=== PATIENT | male | born 1970 | race Caucasian/White ===

== ENCOUNTER 2021-05-11 10:33 | Emergency (ER) | payer OTHER ==
[2021-05-11 11:37] LABS: #Basophils 0.1 thou/uL (0.0-0.2); #Eosinphils 0.1 thou/uL (0.0-0.7); #Lymphocytes 1.7 thou/uL (1.20-3.40); #Monocytes 0.7 thou/uL (0.11-0.59); #Neutrophils 4.3 thou/uL (1.40-6.50); %Eosinophils 1.7 % (0.0-10.0); %Lymphocytes 25.2 % (21.0-51.0); %Monocytes 9.6 % (0.0-10.0); %Neutrophils 62.6 % (42.0-75.0); Hemoglobin 15.2 g/dL (14.0-18.0); Mean Corpuscular HGB CONC 32.5 g/dL (32.0-36.0); Mean Corpuscular Hemoglobin 29.5 pg (27.0-31.0); Mean Corpuscular Volume 90.6 fL (78.0-98.0); Platelet Count 217 thou/uL (130-400); RBC Distribution Width 12.7 % (11.5-14.5); Red Blood Cell (RBC) Count 5.16 mill/uL (4.70-6.10); White Blood Cell (WBC) Count 6.8 thou/uL (4.8-10.8)
[2021-05-11 11:58] LABS: ALT (SGPT) 38 U/L (8-55); AST (SGOT) 25 U/L (5-34); Albumin 4.1 g/dL (3.5-5.0); Alkaline Phosphatase 72 U/L (40-110); Anion Gap 14 mmol/L (10-20); BUN (Urea Nitrogen) 19 mg/dL (8.9-20.6); Bilirubin, Total 0.7 mg/dL (0.2-1.2); Calc. Creatinine Clearance 0 mL/min (70-130); Calcium 9.9 mg/dL (7.8-10.44); Carbon Dioxide 24 mmol/L (22-29); Chloride 102 mmol/L (98-107); Globulin 3.6 g/dL (2.4-3.5); Glucose 121 mg/dL (70-105); Potassium 3.6 mmol/L (3.5-5.1); Protein, Total 7.7 g/dL (6.0-8.3); Sodium 136 mmol/L (136-145)
[2021-05-11] MEDS ORDERED: Bacitracin 1 PK ONE (11:59)
== END 2021-05-11 12:43 | disposition home or self-care (01) ==
LOC: ERS 10:33
DX: H50.9 Unspecified strabismus (principal); M62.830 Muscle spasm of back; I10 Essential (primary) hypertension; E66.01 Morbid (severe) obesity due to excess calories; F17.290 Nicotine dependence, other tobacco product, uncomplicated; Z79.899 Other long term (current) drug therapy
CPT/HCPCS: 36415; 70450; 80053; 85025; 93005

== ENCOUNTER 2023-12-22 10:52 | Inpatient (IN) | payer SELFPAY ==
[2023-12-22] MEDS ORDERED: dilTIAZem 25 MG/5 ML VIAL ONE (11:06)
[2023-12-22] MEDS ORDERED: Lorazepam 2 MG/ML VIAL ONE (11:06)
[2023-12-22 11:49] LABS: #Basophils 0.04 10x3/uL (0.0-0.2); %Basophils 0.5 % (0.0-1.0); %Eosinophils 1.8 % (0.0-10.0); %Lymphocytes 21.3 % (21.0-51.0); %Monocytes 9.3 % (0.0-10.0); %Neutrophils 66.8 % (42.0-75.0); Hematocrit 40.2 % (42.0-52.0); Hemoglobin 13.4 g/dL (14.0-18.0); Mean Corpuscular HGB CONC 33.3 g/dL (32.0-36.0); Mean Corpuscular Hemoglobin 30.5 pg (27.0-31.0); Mean Corpuscular Volume 91.6 fL (78.0-98.0); Mean Platelet Volume 11.5 fL (7.4-10.4); Platelet Count 186 10x3/uL (130-400); RBC Distribution Width 13.5 % (11.5-14.5); Red Blood Cell (RBC) Count 4.39 mill/uL (4.70-6.10)
[2023-12-22 12:12] LABS: ALT (SGPT) 28 U/L (8-55); AST (SGOT) 22 U/L (5-34); Albumin 3.3 g/dL (3.5-5.0); Alkaline Phosphatase 65 U/L (40-110); Anion Gap 11 mmol/L (10-20); BUN (Urea Nitrogen) 17 mg/dL (8.4-25.7); Bilirubin, Total 0.5 mg/dL (0.2-1.2); CK (CPK) 398 U/L (30-200); Calc. Creatinine Clearance 0 mL/min (70-130); Calcium 9.3 mg/dL (7.8-10.44); Carbon Dioxide 26 mmol/L (22-29); Chloride 105 mmol/L (98-107); Estimated GFR 106; Globulin 3.7 g/dL (2.4-3.5); Glucose 93 mg/dL (70-105); Potassium 3.8 mmol/L (3.5-5.1); Sodium 138 mmol/L (136-145)
[2023-12-22 12:15] LABS: Troponin I Less than 0.010 ng/mL (< 0.028)
[2023-12-22] MEDS ORDERED: dilTIAZem 125 MG/25 ML SDV ONE (13:15)
[2023-12-22] MEDS ORDERED: Digoxin 0.5 MG/2 ML AMP ONE (14:35)
[2023-12-22] MEDS: Digoxin 0.5 MG/2 ML AMP SLOW IVP SCH ×3 (14:38→22:49)
[2023-12-22 15:57] LABS: Troponin I 0.021 ng/mL (< 0.028)
[2023-12-22 16:51] VITALS: BMI 60.3
[2023-12-22 19:15] LABS: Troponin I 0.015 ng/mL (< 0.028)
[2023-12-22] MEDS: Amiodarone 150 MG in Dextrose 5% in Water 100 ML IVPB SCH (20:00)
[2023-12-22] MEDS: Amiodarone 450 MG in Dextrose 5% in Water 250 ML IVPB SCH (20:17)
[2023-12-22] MEDS: Atorvastatin Calcium 10 MG TAB PO SCH (20:18)
[2023-12-22] MEDS: Apixaban 5 MG TAB PO SCH (20:18)
[2023-12-22 20:28] LABS: Magnesium 1.6 mg/dL (1.6-2.6)
[2023-12-23] MEDS: Melatonin 3 MG TAB PO PRN (02:28)
[2023-12-23] MEDS: Acetaminophen 325 MG TAB PO PRN (02:28)
[2023-12-23 07:35] LABS: #Basophils 0.07 10x3/uL (0.0-0.2); %Basophils 0.8 % (0.0-1.0); %Eosinophils 1.8 % (0.0-10.0); %Lymphocytes 14.2 % (21.0-51.0); %Monocytes 8.3 % (0.0-10.0); %Neutrophils 74.6 % (42.0-75.0); Hematocrit 40.6 % (42.0-52.0); Hemoglobin 13.3 g/dL (14.0-18.0); Mean Corpuscular HGB CONC 32.8 g/dL (32.0-36.0); Mean Corpuscular Hemoglobin 30.4 pg (27.0-31.0); Mean Corpuscular Volume 92.9 fL (78.0-98.0); Mean Platelet Volume 10.9 fL (7.4-10.4); Platelet Count 182 10x3/uL (130-400); RBC Distribution Width 13.6 % (11.5-14.5); Red Blood Cell (RBC) Count 4.37 mill/uL (4.70-6.10)
[2023-12-23 08:06] LABS: ALT (SGPT) 25 U/L (8-55); AST (SGOT) 19 U/L (5-34); Albumin 3.2 g/dL (3.5-5.0); Alkaline Phosphatase 62 U/L (40-110); Anion Gap 16 mmol/L (10-20); BUN (Urea Nitrogen) 14 mg/dL (8.4-25.7); Bilirubin, Total 0.7 mg/dL (0.2-1.2); Calc. Creatinine Clearance 279 mL/min (70-130); Calcium 8.8 mg/dL (7.8-10.44); Carbon Dioxide 18 mmol/L (22-29); Cardiac Risk 4.2 (Less than 4.5); Chloride 107 mmol/L (98-107); Cholesterol 151 mg/dl (< 200 Desired); Estimated GFR 106; Globulin 3.1 g/dL (2.4-3.5); Glucose 120 mg/dL (70-105); HDL Cholesterol 36 mg/dL (>60 Neg Risk); LDL Cholesterol, Calculated 91 mg/dL; Potassium 4.1 mmol/L (3.5-5.1); Protein, Total 6.3 g/dL (6.0-8.3); Sodium 137 mmol/L (136-145); Triglycerides 121 mg/dL (Less than 150)
[2023-12-23] MEDS ORDERED: Enoxaparin 40 MG (0.4 mL) SYRINGE SC SCH (09:00)
[2023-12-23] MEDS ORDERED: Magnesium 2 GM/50 ML(in water) 2 GM in Premix 1 BAG IVPB SCH (09:00)
[2023-12-23] MEDS: Magnesium Oxide 400 MG TAB PO SCH (12:22)
[2023-12-23 15:42] LABS: Phosphorus 3.1 mg/dL (2.3-4.7)
[2023-12-23] MEDS: Carvedilol 6.25 MG TAB PO SCH (21:33)
[2023-12-24] MEDS: Carvedilol 6.25 MG TAB PO SCH (08:39)
[2023-12-24] MEDS: Amiodarone 200 MG TAB PO SCH (11:09)
[2023-12-24 14:51] LABS: Magnesium 1.7 mg/dL (1.6-2.6)
[2023-12-24 15:44] VITALS: BP 119/76; TEMP 99.5
[2023-12-24] MEDS ORDERED: Amiodarone 200 MG TAB PO SCH (21:00)
[2024-01-07] MEDS ORDERED: Amiodarone 200 MG TAB PO SCH (09:00)
[2024-01-21] MEDS ORDERED: Amiodarone 200 MG TAB PO SCH (09:00)
== END 2023-12-24 18:30 | disposition home or self-care (01) | DRG 310 ==
LOC: ERS 10:52 → ERHOLD 12:53 → 2SW 16:28 → OBSVTOIN 12-23 11:51
PROVIDERS: ADMIT Family Medicine; ATTEND Family Medicine
DX: I48.3 Typical atrial flutter (principal); I10 Essential (primary) hypertension; E78.5 Hyperlipidemia, unspecified; G47.33 Obstructive sleep apnea (adult) (pediatric); K21.9 Gastro-esophageal reflux disease without esophagitis; F15.10 Other stimulant abuse, uncomplicated; E05.80 Other thyrotoxicosis without thyrotoxic crisis or storm; E83.42 Hypomagnesemia; Z79.899 Other long term (current) drug therapy
CPT/HCPCS: 36415; 36416; 71045; 80053; 80061; 82550; 83735; 83880; 84100; 84439; 84443; 84480; 84484; 85025; 93005; 93306; 94760; J0282; J1160; J2060; J7070